=== PATIENT | male | born 1990 | race Caucasian/White ===

== ENCOUNTER 2016-07-07 11:42 | Emergency (ER) | payer OTHER ==
[~2016-07-07] VITALS: Ht 165.1 cm; Wt 90.0 kg
[2016-07-07 11:48] VITALS: TEMP 36.6; Ht 165.1 cm; Wt 90.0 kg
--- NOTE | 2016-07-07 12:18 | DIAGNOSTIC IMAGING REPORT ---
RIGHT ANKLE MIN 3 VIEWS ROUTINE CLINICAL HISTORY: Right ankle pain following injury. COMPARISON: None FINDINGS: Alignment of the right ankle is anatomic. There is no acute fracture. Talar dome is intact. There is moderate lateral ankle soft tissue swelling. IMPRESSION: 1. No acute fracture or dislocation of the right ankle. 2. Moderate lateral ankle soft tissue swelling. Electronically signed by: Roger Nelson M.D. 07/07/2016 12:16 PM Dictated Date/Time: 07/07/2016 12:16 PM
[2016-07-07 12:49] VITALS: BP 129/70; PULSE 83; O2SAT 97
--- NOTE | 2016-07-07 17:29 | EMERGENCY ROOM VISIT NOTE ---
ED Visit Note First contact with patient: 11:51 CHIEF COMPLAINT: Right ankle pain. HISTORY OF PRESENT ILLNESS: Mr. Flores is a 25-year old white male who ambulates into the ED accompanied by multiple family members complaining of right lateral ankle pain. He reports last evening he jumped off a wall approximately 2 feet in the air and rolled his right ankle. From his description this appears to be an inversion injury. He reports since that time he has been having moderate to severe pain over the lateral aspect of the ankle. He is currently complaining of constant sharp and throbbing over the distal malleolus and surrounding ligamentous structures. He rates his discomfort 10/ 10. His pain is nonradiating. His pain worsens with palpation, inversion, plantar flexion and ambulation. He has not identified any alleviating factors related to the pain. He reports he has taken ibuprofen without relief of his discomfort. He denies any associated symptoms including hip pain, knee pain, lower leg pain, leg weakness/numbness/tingling. Additionally he denies any previous significant injuries or surgeries. REVIEW OF SYSTEMS: As noted above in History of Present Illness. PAST MEDICAL HISTORY: Patient denies. CURRENT MEDICATIONS: Patient denies. ALLERGIES TO MEDICATIONS: Bactrim. SOCIAL HISTORY: Patient feels safe in his home environment; he admits to tobacco use. PHYSICAL EXAM: Vital Signs: Date Time Temp Pulse Resp B/P Pulse Ox O2 Delivery O2 Flow Rate FiO2 07/07/16 12:49 83 16 129/70 97 07/07/16 11:48 36.6 92 18 116/73 97 Room Air General: 25 year old male in mild distress due to pain, nontoxic-appearing, afebrile and hemodynamically stable. Neurological: Awake, alert, oriented to person place and time. Answering questions appropriately and following commands. Skin: Warm dry and pink. No soft tissue injuries. Right Lower Extremity: No gross delisa deformities. No tenderness in the hip or knee. Tenderness over the lateral malleolus and the ligamentous structures surrounding the malleolus. There is moderate swelling but no bony deformity, bony crepitus or ecchymosis. I did not appreciate any ligamentous laxity with testing but he was in severe pain and was guarding. Full range of motion of the ankle and plantar flexion and dorsiflexion and full range of motion of the toes. Throughout the foot the skin is pink and warm with brisk capillary refill. Able to distinguish light sensations through all dermatomes of the foot. ED COURSE: Patient is assessed as noted above. Right Ankle X-Rays: Were read by myself and the radiologist showing no acute fractures or dislocations. Moderate soft tissue swelling. Patient is given ice for pain, swelling and comfort; he was offered pain medications and refused.. Patient is placed in a gel splint and is instructed on crutch use. Patient is educated about his condition and instructed on his treatment plan; he verbalizes understanding and agreement with the our plan. CLINICAL IMPRESSION: Right ankle sprain. DISPOSITION: Patient is discharged to home in stable condition accompanied by family members; prior to departure he was reassessed and subjectively reported he was feeling the same and rated his discomfort 10/10. PLAN: Comfort measures were discussed with the pain including rest, ice, elevation, splint and crutch use. Patient was encouraged to follow-up with an orthopedic physician if no better in 7 to 10 days. Patient was encouraged to return ED needed for increasing pain or swelling.
== END 2016-07-07 12:52 | disposition home or self-care (01) ==
LOC: C.EDB 11:44 → C.EDD 12:52
DX: S93.401A Sprain of unspecified ligament of right ankle, initial encounter (principal); W17.89XA Other fall from one level to another, initial encounter; Z72.0 Tobacco use